=== PATIENT | female | born 2000 | race Caucasian/White ===

== ENCOUNTER → 2022-07-18 | Outpatient (CLI) | payer OTHER ==
[~2022-07-18] MED LIST: BARIUM for suspension 96% w/w (Vanilla Silq Medium Density) PO ONE; BARIUM for suspension 98% w/w (Vanilla Silq High Density) PO ONE
--- NOTE | 2022-07-18 13:36 | Diagnostic Imaging Report ---
INDICATION: Preop to gastric sleeve surgery. TECHNIQUE: Patient ingested effervescent crystals as well as thin and thick barium, and imaging of the esophagus, stomach, and proximal duodenum was performed in multiple obliquities. Total of 40 seconds of fluoroscopic time was utilized. FINDINGS: Preliminary radiograph of the abdomen shows surgical clips in the right upper quadrant. The esophagus has a smooth contour. No mass or stricture is identified. No hiatal hernia or gastroesophageal reflux was demonstrated. The stomach has a normal configuration. There is prompt emptying into the small bowel. The duodenal bulb is without deformity. Visualized small bowel loops are normal in caliber. IMPRESSION: Unremarkable upper GI study. Dictated by: Dictated on workstation # [id number]
== END ==
LOC: RAD 09:33
PROVIDERS: ATTEND Surgery
DX: K21.9 Gastro-esophageal reflux disease without esophagitis (principal)
CPT/HCPCS: 74246

== ENCOUNTER 2022-09-27 05:33 | Outpatient (CLI) | payer OTHER ==
[~2022-09-27] VITALS: Ht 162.6 cm; Wt 115.9 kg
[2022-09-27] MEDS ORDERED: ASPI-999 PO (09:59)
[2022-09-27] MEDS ORDERED: SPIR25TA PO (09:59)
[2022-09-27] MEDS ORDERED: LEVO75CA5 PO (09:59)
== END 2022-09-27 16:23 | disposition home or self-care (01) ==
LOC: PREOP 05:33
PROVIDERS: ATTEND Surgery
DX: Z01.818 Encounter for other preprocedural examination (principal)

== ENCOUNTER 2022-09-29 14:19 | Day surgery (SDC) | payer OTHER ==
--- NOTE | 2022-09-26 18:57 | HISTORY AND PHYSICAL ---
This is for procedure date, 09/29/2022. ATTENDING PRIMARY CARE PHYSICIAN: Dr. Esther Villafana. INDICATION: The patient is a 21-year-old female with morbid obesity, who is interested in the laparoscopic gastric sleeve resection and meets the medical criteria for bariatric surgery. She reports that she has gained the majority of her adult weight after the of her child 2 years ago. She reports that she has tried diets in the past such as keto, high protein, low carbohydrates, Nutrisystem Weight Watchers, intermittent fasting, as well as physician monitored dieting, which again included high protein, low carbohydrate diet. She did report that she did have some success with the keto diet. She reports that she has also tried exercises in the past such as jogging, walking, elliptical running, stairs, jumping rope and resistance weight training. She has tried medications for weight loss including diethylpropion and metformin, but reported minimal success with the diethylpropion. Her medical comorbidities related to obesity include polycystic ovarian syndrome and hypertension. MEDICAL HISTORY: Factor V Leiden, polycystic ovarian syndrome, hypothyroidism, hypertension. SURGICAL HISTORY: Tonsillectomy in 2003, excision of posterior neck lipoma in 2011, laparoscopic cholecystectomy in 2014. ALLERGIES: No known drug allergies. MEDICATIONS: Aspirin 81 mg daily, levothyroxine daily, spironolactone 50 mg daily. SOCIAL HISTORY: Negative for tobacco smoke. Rare for alcohol. FAMILY HISTORY: Mother, diabetes mellitus, factor V Leiden, stroke. Father, hypertension. Maternal grandfather, factor V Leiden, hypertension. Maternal grandmother, diabetes, factor V Leiden, hypertension, stroke, myocardial infarction. Paternal grandfather, hypertension, colon cancer. Paternal grandmother, hypertension. REVIEW OF SYSTEMS: This is a well-nourished, obese female in no acute distress. She is not experiencing any shortness of breath or difficulty breathing. No chest pain, palpitations or diaphoresis. No nausea, vomiting or abdominal pain. No diarrhea or constipation. No red blood per rectum. No dark tarry stools. No fever or chills. No recent inadvertent weight loss. All other review of systems negative. PHYSICAL EXAMINATION: VITAL SIGNS: Blood pressure is 133/88. Current weight is 253.6 pounds at 5 feet 4 inches with a body mass index of 43.5. CHEST: Clear. Good breath sounds bilaterally. HEART: Regular, no murmurs. EXTREMITIES: No lower extremity edema. Negative Homans sign. HEENT: No scleral icterus. No cervical lymphadenopathy. ABDOMEN: Soft, nontender, nondistended. SKIN: Warm, dry and pink. NEUROLOGIC: Awake, alert and oriented x3. ASSESSMENT AND PLAN: A 21-year-old female with morbid obesity and medical comorbidities related to obesity including polycystic ovarian syndrome and hypertension. She is interested in the laparoscopic gastric sleeve resection and does meet the medical criteria for bariatric surgery. At this time, we will proceed with the necessary tests and evaluations including overnight oximetry study, upper GI contrast study, nutrition and psychology consult, clearance from her primary care physician and physician-monitored dieting. If the overnight oximetry study does show any abnormalities then we will proceed with a formal sleep study for proper diagnosis and treatment of obstructive sleep apnea. The risks and benefits of the procedure as well as the procedure and home care instructions were explained to the patient. It was also discussed with her in depth about proper diet and exercise preoperatively as well as postoperatively. She verbalized understanding of instructions and agrees to proceed as planned. At this time, she has completed all the necessary tests, evaluations and we will proceed with scheduling her for a laparoscopic gastric sleeve resection. Job ID: [id number] DocumentID: [id number] Dictated Date: 09/21/2022 08:17:30 Supervisory Clerk Date: 09/21/2022 08:53:00 Dictated By: SHERWIN MADERA APRN
[~2022-09-29] VITALS: Ht 163 cm; Wt 115.4 kg
[2022-09-29] VITALS (9 sets, daily range): BP systolic 129–153; BP diastolic 67–100
[~2022-09-29 14:19] MED LIST changes: +ASPI-999 PO; -BARIUM for suspension 96% w/w (Vanilla Silq Medium Density) PO ONE; -BARIUM for suspension 98% w/w (Vanilla Silq High Density) PO ONE; +LEVO75CA5 PO; +SPIR25TA PO
[2022-09-29] MEDS ORDERED: BUP/EPI 0.5% 1:200,000 (SENSORCAINE) 30 ML VIAL ONE (14:27)
[2022-09-29] MEDS ORDERED: ceFAZolin INJECTION 2,000 MG in NS (IVPB) 50 ML IV ONE (14:30)
[2022-09-29] MEDS: LACTATED RINGERS 1,000 ML IV PRN ×2 (14:46→16:00)
[2022-09-29] MEDS ORDERED: fentaNYL INJ 100 MCG/2 ML AMP ONE ×2 (14:46→16:35)
[2022-09-29] MEDS ORDERED: proPOfol 200 MG/20 ML (DIPRIVAN) VIAL IV ONE (14:46)
[2022-09-29] MEDS ORDERED: MIDAZOLAM 2 MG/2 ML (VERSED) VIAL ONE (14:46)
[2022-09-29] MEDS ORDERED: LIDOCAINE PF 2% 5 ML (XYLOCAINE) VIAL ONE (14:46)
[2022-09-29] MEDS ORDERED: ONDANSETRON 4 MG/2 ML (SDV) Z0FRAN ONE ×2 (14:47→16:35)
[2022-09-29] MEDS ORDERED: ROCURONIUM 50 MG/5 ML (ZEMURON) VIAL IV ONE (14:47)
[2022-09-29] MEDS ORDERED: SEVOFLURANE (ULTANE) 15 ML INHAL SOLN ONE ×3 (14:47→17:35)
--- NOTE | 2022-09-29 14:54 | Progress Note-Pre Operative ---
Pre-Operative Progress Note Date of Available H&P: Sep 29, 2022 Date H&P Reviewed: Sep 29, 2022 Time H&P Reviewed: 14:30 History & Physical: No changes noted Pre-Operative Diagnosis: morbid obesity, HTN, PCOS ISRRAEL GUTIERREZ MD Sep 29, 2022 14:54
--- NOTE | 2022-09-29 14:59 | Discharge Inst-Surgical ---
D/C Lap Instructions-BRENDA Follow Up Appt in 2 weeks Activity as tolerated No driving for 24 hours No driving while on pain medications Incentive Spirometry use every 2 hours while awake Phse 1 clear liquid diet next 2 weeks. Symptoms to Report: Fever over 101 degree F, Nausea/Vomiting Infection Signs and Symptoms to report: Increased redness, Foul odor of wound, Increased drainage Bathing instructions: May shower Operative Area Clean/Dry; Keep incision clean/dry If any problems/questions: Contact your physician or go to Emergency Room ISRRAEL GUTIERREZ MD Sep 29, 2022 14:59
[2022-09-29] MEDS ORDERED: diphenhydrAMINE 50 MG/ML INJ (BENADRYL) IVP PRN (15:00)
[2022-09-29] MEDS ORDERED: METOCLOPRAMIDE INJ 10 MG/2 ML (REGLAN) IV PRN (15:00)
[2022-09-29] MEDS ORDERED: NS IV 1000 ML 1,000 ML IV SCH (15:00)
[2022-09-29] MEDS ORDERED: fentaNYL PCA 1,000 MCG/100 ML 100 ML IV PRN (15:00)
[2022-09-29] MEDS ORDERED: diphenhydrAMINE 50 MG/ML INJ (BENADRYL) IV PRN (15:00)
[2022-09-29] MEDS ORDERED: ONDANSETRON 4 MG/2 ML (SDV) Z0FRAN IV PRN (15:00)
[2022-09-29] MEDS ORDERED: NALOXONE 0.4 MG/ML 1 ML (NARCAN) VIAL IV PRN (15:00)
[2022-09-29] MEDS ORDERED: HYDROmorphone 2 MG/ML VIAL (DILAUDID) ONE (16:03)
--- NOTE | 2022-09-29 16:17 | Progress Note-Post Operative ---
Post-Operative Progess Note Surgeon (s)/Retail Store Associate (s) Surgeon ISRRAEL GUTIERREZ MD Retail Store Associate: shira wagner [employer] Pre-Operative Diagnosis morbid obesity, HTN, PCOS Post-Operative Diagnosis same Procedure & Operative Findings Date of Procedure 09/29/22 Procedure Performed/Findings laparoscopic gastric sleeve resection. Anesthesia Type get Estimated Blood Loss Estimated blood loss (mL): minimal Specimens/Packing Specimens Removed stomach ISRRAEL GUTIERREZ MD Sep 29, 2022 16:17
[2022-09-29] MEDS ORDERED: GLYCOPYRROLATE 0.2 MG/ML (ROBINUL) 2 ML VIAL ONE (16:27)
[2022-09-29] MEDS ORDERED: NEOSTIGMINE (BLOXIVERZ ) 1 MG/1ML 10 ML VIAL ONE (16:27)
--- NOTE | 2022-09-29 16:38 | Anesthesia-General Post-Op ---
General Patient Condition Mental Status/LOC: Same as Preop Cardiovascular: Satisfactory Nausea/Vomiting: Absent Respiratory: Satisfactory Pain: Controlled Complications: Absent Post Op Complications Complications None Follow Up Care/Instructions Patient Instructions None needed. Anesthesia/Patient Condition Patient Condition Patient is doing well, no complaints, stable vital signs, no apparent adverse anesthesia problems. No complications reported per nursing. JANETH YU CRNA Sep 29, 2022 16:37
[2022-09-29] MEDS ORDERED: PROMETHAZINE INJ 25 MG/ML (PHENERGAN) AMP ONE (16:44)
[2022-09-29] MEDS ORDERED: PROMETHAZINE INJ 25 MG/ML (PHENERGAN) AMP IVP ONE (16:45)
[2022-09-29] MEDS ORDERED: ONDANSETRON 4 MG/2 ML (SDV) Z0FRAN IVP PRN (16:45)
[2022-09-29] MEDS ORDERED: MEPERIDINE (DEMEROL) INJ 50 MG/ML IVP ONE (16:45)
[2022-09-29] MEDS ORDERED: fentaNYL INJ 100 MCG/2 ML AMP IVP ONE (16:45)
[2022-09-29] MEDS: METOCLOPRAMIDE INJ 10 MG/2 ML (REGLAN) IVP SCH ×2 (18:19→23:02)
[2022-09-29] MEDS: ONDANSETRON 4 MG/2 ML (SDV) Z0FRAN IVP SCH ×2 (18:19→23:01)
[2022-09-29] MEDS: 1/2 NS W/KCL 20 MEQ/L 1,000 ML IV SCH ×3 (18:19→23:55)
[2022-09-29] MEDS: metroNIDAZOLE 500MG/100ML IVPB 100 ML IV SCH (18:20)
[2022-09-29] MEDS: RT-ALBUTEROL SULF 2.5 MG/3 ML PRE-MIX VIAL INH SCH (19:59)
--- NOTE | 2022-09-29 21:32 | OPERATIVE REPORT ---
DATE OF SERVICE: 09/29/2022 ATTENDING PRIMARY CARE PHYSICIAN: Dr. Santana [ ]. PREOPERATIVE DIAGNOSES: Morbid obesity, hypertension, polycystic ovarian syndrome. POSTOPERATIVE DIAGNOSES: Morbid obesity, hypertension, polycystic ovarian syndrome. PROCEDURE: Laparoscopic gastric sleeve resection. SURGEON: Dr. Gutierrez. SLOT HOST: Dean Ray APRN. ANESTHESIA: General endotracheal. ESTIMATED BLOOD LOSS: Minimal. FINDINGS: Surgically absent gallbladder, minimal hepatomegaly, no hiatal hernia. DISPOSITION: The patient tolerated the procedure well. INDICATIONS: The patient is a 21-year-old female with morbid obesity, medical comorbidities related to her obesity and meets medical criteria for bariatric surgery and is in our surgical weight loss program for the gastric sleeve resection. She states that she gained the majority of her adult weight after the of her child 2 years ago. She has tried a number of diet and exercise attempts with no success. She has tried diet programs including ketogenic, low carbohydrate, high protein diets as well as Nutrisystem Weight Watchers, intermittent fasting and physician monitored dieting and has had some success but would regain the weight back over time. She has also tried exercise regimens including walking, treadmill, jogging, elliptical machine, jump rope, resistance weight training with no success. She has also tried medications including metformin as well as diethylpropion and she states minimal success. Her medical comorbidities related to her obesity include hypertension and polycystic ovarian syndrome. DESCRIPTION OF PROCEDURE: The patient was brought to the operating room, laid supine on the table. After adequate IV pain and sedative medications and general endotracheal intubation, the abdomen was prepped and draped in standard surgical fashion. A 0.5% Marcaine with epinephrine was used to anesthetize the overlying skin in the left upper abdominal quadrant and a transverse skin incision made using a #15 blade. An 0 silk suture was applied to the medial aspect of the incision for retraction and a Veress needle inserted with a low opening pressure of 0 mmHg and the abdomen was then insufflated to 15 mmHg. The Veress needle removed and a 5 mm XL trocar placed followed by a 5 mm 45-degree angle laparoscope visualizing the peritoneal cavity. A 4-quadrant abdominal exploration was performed. There was mild hepatomegaly and a surgically absent gallbladder. There did not appear to be a hiatal hernia. Under direct visualization, we then proceeded to place a midabdominal left of midline 10 mm port after the skin and peritoneal lining were anesthetized using 0.5% Marcaine with epinephrine and a transverse skin incision made using a #15 blade. In a similar manner, midabdominal right of midline 15 mm port was placed followed by a right upper abdominal quadrant 5 mm port. The epigastric region was then anesthetized and a skin incision made using a #11 blade and a tract created through the abdominal wall layers using a trocar to a 5 mm port. Through this opening, a medium size Gaurav liver retractor was placed in the left lobe of the liver retracted anteriorly and superiorly. The patient was then placed in steep reverse Trendelenburg position. We then measured 6 cm from the pylorus along the greater curvature and marked this area with a marking pen. We then proceeded with opening of the gastrocolic ligament next to the stomach using the Sonicision entering the lesser sac. We first proceeded with inferior dissection until we were approximately 2 cm below our marking using the Sonicision with visualization of good hemostasis. We then proceeded superiorly, taking the short gastric vessels as well as the angle of His connective tissue fibers and dissected inferiorly until we reached the left meghan of the diaphragm using the Sonicision with visualization of good hemostasis. A 36-English ViSiGi was then placed under direct visualization and directed into the pylorus. Using this as our staple guideline, we first proceeded with a 45 mm black load 2 cm below our marking. We then proceeded with two 60 mm black loads and then a 60 mm purple load, leaving 2 cm at the gastroesophageal junction and completing our gastric sleeve resection. The staple line corners were then clipped with 5 mm clips. We then proceeded with a leak test to 35 mmHg pressure through the ViSiGi with no leak identified. Fibrin glue was then placed onto the staple line and the omentum placed onto the staple line. The stomach was removed through the 15 mm port site. The fascia and peritoneum to the 10-15 mm port sites were then closed under direct visualization using a Dylan-Rossana device and an 0 Vicryl suture. The abdomen was desufflated and the remaining ports were removed. All skin incisions were closed using 4-0 Monocryl running subcuticular sutures. Wounds were then cleaned and covered with Dermabond. The patient tolerated the procedure well. We will admit her to the general medical surgical floor. We will proceed with DVT prophylaxis with early ambulation, calf SCDs as well as Lovenox injections, She may have ice chips today and then tomorrow morning, she will proceed with a phase 1 clear liquid diet and when she is able to tolerate 60 mL every 30 minutes, has adequate pain control with oral pain medication and is ambulating well, we will then discharge her home where she will be instructed to do no heavy lifting or exertion and to follow phase 1 clear liquid diet for the next 2 weeks. Job ID: [id number] DocumentID: [id number] Dictated Date: 09/29/2022 16:26:16 Government Property Inspector Date: 09/29/2022 21:30:00 Dictated By: ISRRAEL GUTIERREZ MD
[2022-09-29] MEDS: ceFAZolin INJECTION 2,000 MG in NS (IVPB) 50 ML IV SCH (21:59)
[2022-09-29] MEDS: ENOXAPARIN 40 MG/0.4 ML (LOVENOX) SYR SC SCH (21:59)
[2022-09-29] MEDS: HYDROmorphone 2 MG/ML VIAL (DILAUDID) IVP PRN ×2 (21:59→23:54)
[2022-09-30] MEDS: HYDROmorphone 2 MG/ML VIAL (DILAUDID) IVP PRN ×3 (02:03→08:36)
[2022-09-30] MEDS: metroNIDAZOLE 500MG/100ML IVPB 100 ML IV SCH ×2 (02:51→11:02)
[2022-09-30 03:17] VITALS: BP 127/78
[2022-09-30] MEDS: METOCLOPRAMIDE INJ 10 MG/2 ML (REGLAN) IVP SCH ×2 (05:05→12:03)
[2022-09-30] MEDS: ONDANSETRON 4 MG/2 ML (SDV) Z0FRAN IVP SCH ×2 (05:05→12:06)
[2022-09-30] MEDS: ceFAZolin INJECTION 2,000 MG in NS (IVPB) 50 ML IV SCH (05:06)
[2022-09-30 06:03] LABS: HEMATOCRIT 39 % (35-52); HEMOGLOBIN 13.3 g/dL (11.5-16.0); MEAN CORPUSCULAR HEMOGLOBIN 33 pg (25-34); MEAN CORPUSCULAR HGB CONC 34 g/dL (32-36); MEAN CORPUSCULAR VOLUME 97 fL (80-99); MEAN PLATELET VOLUME 9.4 fL (9.0-12.2); PLATELET COUNT 275 10^3/uL (130-400); WHITE BLOOD COUNT 9.6 10^3/uL (4.3-11.0)
[2022-09-30 06:17] LABS: CREATININE SERUM 0.65 MG/DL (0.60-1.30); POTASSIUM 4.3 MMOL/L (3.6-5.0)
[2022-09-30] MEDS: RT-ALBUTEROL SULF 2.5 MG/3 ML PRE-MIX VIAL INH SCH (07:23)
[2022-09-30] MEDS: 1/2 NS W/KCL 20 MEQ/L 1,000 ML IV SCH (07:36)
[2022-09-30 07:46] VITALS: BP 136/85
[2022-09-30] MEDS: ENOXAPARIN 40 MG/0.4 ML (LOVENOX) SYR SC SCH (08:34)
[2022-09-30] MEDS ORDERED: PANTOPRAZOLE 40 MG (PROTONIX) VIAL IV SCH (09:00)
[2022-09-30] MEDS ORDERED: SENNA W/DOCUSATE (SENOKOT S) TABLET PO SCH (09:00)
[2022-09-30 11:19] VITALS: BP 139/86
[2022-09-30] MEDS ORDERED: PATIENT MAY USE OWN MEDS, ALL MC SCH (11:45)
[2022-09-30] MEDS ORDERED: OXYCODONE 5 MG/5 ML PO PRN (11:45)
--- NOTE | 2022-09-30 11:57 | Progress Note ---
Subjective Date Seen by a Provider: Sep 30, 2022 Time Seen by a Provider: 11:00 Subjective/Events-last exam doing well. tolerating phase 1 clear liquids. mild nausea however no vomiting. pain controlled. Objective Exam Vital Signs Date Time Temp Pulse Resp B/P (MAP) Pulse Ox O2 Delivery O2 Flow Rate FiO2 09/30/22 11:19 36.9 88 20 139/86 (103) 100 Room Air 09/30/22 09:34 98 Room Air 09/30/22 07:46 36.5 92 20 136/85 (102) 98 Room Air 09/30/22 07:26 96 Room Air 0.00 09/30/22 05:13 16 09/30/22 03:17 36.8 106 16 127/78 (94) 97 Nasal Cannula 2.00 2.00 09/30/22 02:58 99 Nasal Cannula 2.00 09/29/22 23:00 37.2 92 16 129/82 (98) 99 Nasal Cannula 1.00 09/29/22 21:26 98 Room Air 09/29/22 21:00 20 09/29/22 20:30 97 Nasal Cannula 1.00 09/29/22 20:00 36.9 94 18 136/82 (100) 99 Nasal Cannula 1.00 09/29/22 19:57 99 Nasal Cannula 3.00 09/29/22 17:25 Room Air 09/29/22 17:20 36.4 20 152/74 (100) 97 Room Air 09/29/22 17:15 OxyMask 3.00 09/29/22 17:10 20 152/86 (108) 100 OxyMask 3.00 09/29/22 17:00 OxyMask 8 09/29/22 17:00 16 153/74 (100) 100 OxyMask 8 09/29/22 16:50 16 144/86 (105) 100 OxyMask 8 09/29/22 16:45 OxyMask 8 09/29/22 16:40 14 141/67 (91) 99 OxyMask 8 09/29/22 16:29 OxyMask 8 09/29/22 16:29 36.5 14 134/77 (96) 100 OxyMask 8 09/29/22 14:55 36.9 121 20 142/100 (114) 100 Room Air I & O 09/30/22 07:00 Intake Total 1230 ml Output Total 2725 ml Balance -1495 ml Capillary Refill : General Appearance: No Apparent Distress HEENT: PERRL/EOMI Neck: Full Range of Motion Respiratory: Chest Non Tender, Lungs Clear, Normal Breath Sounds Cardiovascular: Regular Rate, Rhythm Gastrointestinal: normal bowel sounds, soft, tenderness, other (inc clean/dry) Extremity: Normal Capillary Refill Neurologic/Psychiatric: Alert, Oriented x3 Skin: Normal Color Lymphatic: No Adenopathy Results Lab Laboratory Tests 09/30/22 05:36: White Blood Count 9.6, Red Blood Count 3.99, Hemoglobin 13.3, Hematocrit 39, Mean Corpuscular Volume 97, Mean Corpuscular Hemoglobin 33, Mean Corpuscular Hemoglobin Concent 34, Red Cell Distribution Width 12.2, Platelet Count 275, Mean Platelet Volume 9.4, Sodium Level 138, Potassium Level 4.3, Chloride Level 104, Carbon Dioxide Level 21, Anion Gap 13, Blood Urea Nitrogen 4L, Creatinine 0.65, Estimat Glomerular Filtration Rate 128, BUN/Creatinine Ratio 6, Glucose Level 118H, Calcium Level 9.0 Microbiology 09/29/22 MRSA Screen - Final, Complete MRSA not isolated Assessment/Plan Assessment/Plan Assess & Plan/Chief Complaint s/p laparoscopic gastric sleeve resection. cont phase 1 clear liquid diet for next 2 weeks. ambulate. home when tolerating clears and adequate pain control with PO meds. ISRRAEL GUTIERREZ MD Sep 30, 2022 11:57
[2022-09-30] MEDS ORDERED: ONDANSETRON 4 MG/2 ML (SDV) Z0FRAN IVP PRN (15:00)
[2022-09-30] MEDS ORDERED: METOCLOPRAMIDE INJ 10 MG/2 ML (REGLAN) IVP PRN (15:00)
== END 2022-09-30 14:30 | disposition home or self-care (01) ==
LOC: SDC 14:19 → 4TH 17:39 → SDC 09-30 14:30
PROVIDERS: ATTEND Surgery
DX: E66.01 Morbid (severe) obesity due to excess calories (principal); I10 Essential (primary) hypertension; E28.2 Polycystic ovarian syndrome; Z68.41 Body mass index [BMI] 40.0-44.9, adult; Z79.899 Other long term (current) drug therapy; Z28.310 Unvaccinated for COVID-19
CPT/HCPCS: 36415; 80048; 84703; 85027; 87081; 94640; 94664

== ENCOUNTER 2022-12-28 23:52 | Emergency (ER) | payer OTHER ==
[~2022-12-28] VITALS: Ht 160 cm; Wt 83.9 kg
--- NOTE | 2022-12-29 00:20 | ED General ---
General Stated Complaint: BLOOD DRAW Source of Information: Patient History of Present Illness Date Seen by Provider: Dec 29, 2022 Time Seen by Provider: 23:59 Initial Comments 22 yo female presenting to the ED with law enforcement for legal blood draw for DUI. Patient had refused so they were trying to get a warrant to be able to draw her blood. patient has been very vocal in refusing blood draw or any exam or vital signs. She has been alert and talking without difficulty as she asks to be able to use her phone or check on her child. She was advised she had to wait until she got to long term for her phone call and that she could not have her phone here. She refused any physical exam or to allow vital signs or anyone to touch her. She has been ambulating to the bathroom without difficulty and been awake and talking without any distress the entire time she was waiting for the warrant. She initially was going to just be a legal blood draw but then when another officer arrived he advised she needed to be medically cleared for incarceration whether she allowed blood draw or not. At that point she was registered with ED as a patient. However, she continued to refuse physical exam or vital signs. Allergies and Home Medications Allergies Coded Allergies: No Allergy Information Available (Unverified , 09/27/22) Patient Home Medication List Home Medication List Reviewed: Yes Aspirin (Aspirin) 81 Mg Tab.chew, 81 MG PO DAILY, (Reported) Entered as Reported by: Kathia Keene on 09/27/22958 Levothyroxine Sodium (Levothyroxine) 75 Mcg Capsule, 75 MCG PO DAILY, (Reported) Entered as Reported by: Kathia Keene on 09/27/22958 Spironolactone (Aldactone) 25 Mg Tablet, 25 MG PO DAILY, (Reported) Entered as Reported by: Kathia Keene on 09/27/22958 Review of Systems Review of Systems Constitutional: see HPI (patient refused to answer questions or allow medical screening exam or physical exam. She denied any medical complaints) Past Uxftkns-Fihjtf-Jrytbs Hx Immunizations Up To Date Tetanus Booster (TDap): Less than 5yrs Seasonal Allergies Seasonal Allergies: Yes Past Medical History Gallbladder, Tonsillectomy Respiratory: No Currently Using CPAP: No Currently Using BIPAP: No Cardiac: No (PRE-ECLAMPSIA WHILE ) Neurological: No Female Reproductive Disorders: Polycystic Ovarian Dis Sexually Transmitted Disease: No Genitourinary: No Gastrointestinal: No Musculoskeletal: No Endocrine: Yes Hypothyroidsim HEENT: No Cancer: No Psychosocial: No Integumentary: Yes Eczema Blood Disorders: Yes (FACTOR 5) Adverse Reaction/Blood Tranf: No Physical Exam Vital Signs Capillary Refill : Height, Weight, BMI Height: '" Weight: lbs. oz. kg; 43.62 BMI Method: General Appearance: No Apparent Distress, WD/WN, Other (patient sitting in chair with law enforcement in the room and in no distress or discomfort. She has some make up that had run on her face as though she had been crying earlier) HEENT: PERRL/EOMI Neck: Full Range of Motion Respiratory: Other (breathing normally in the room and no distress or difficulty talking or breathing) Neurologic/Psychiatric: Alert Skin: Normal Color, Warm/Dry Progress/Results/Core Measures Suspected Sepsis SIRS Temperature: Pulse: Respiratory Rate: Blood Pressure / Mean: Results/Orders Vital Signs/I&O Capillary Refill : Progress Note : Progress Note Patient refused physical exam or vital signs. She refused to allow any one to touch her. She denied medical complaints and said she just wanted her phone call to be able to call her straddle buggy operator and to check on her child. As she was not having any difficulty staying awake, speaking, breathing and was able to ambulate into the department as well as to the bathroom while in ED it was felt she was medically clear and stable for incarceration with law enforcement. Departure Impression Primary Impression: Medical clearance for incarceration Disposition: 21 DIS/[address]/LAW ENFORCE Condition: Stable Departure-Patient Inst. Decision time for Depature: 00:17 Referrals: NO,LOCAL PHYSICIAN (PCP) Primary Care Physician Patient Instructions: General (DC) Add. Discharge Instructions: Patient refused vital signs or medical physical exam. She has had no difficulty breathing or talking and has been ambulating to the bathroom without difficulty. She is deemed medically clear and stable for incarceration and can be released to law enforcement for incarceration. DEWEY OVERTON MD Dec 29, 2022 00:20
== END 2022-12-29 00:25 ==
LOC: EDUNIT# 23:52 → ER FS 23:53
CPT/HCPCS: 99283